=== PATIENT | female | born 1990 | race Caucasian/White ===

== ENCOUNTER 2022-09-06 15:09 | Emergency (ER) | payer OTHER ==
[2022-09-06 15:24] VITALS: BP 124/76
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
== END 2022-09-06 17:52 | disposition home or self-care (01) ==
LOC: ED 15:09
DX: S46.911A Strain of unspecified muscle, fascia and tendon at shoulder and upper arm level, right arm, initial encounter (principal); V49.88XA Car occupant (driver) (passenger) injured in other specified transport accidents, initial encounter
CPT/HCPCS: 99282; 99283